=== PATIENT | male | born 1980 | race Caucasian/White ===

== ENCOUNTER 2022-02-04 12:00 | Inpatient (IN) | payer OTHER ==
[~2022-02-04] VITALS: Ht 172.7 cm; Wt 95.3 kg
[~2022-02-04 12:00] MED LIST: INTESTINEX680 M1 PO; KETO10TA2 PO; NEXIUM40 M1 PO; NORFLEX100MG PO
[2022-02-12] MEDS ORDERED: HYOSCYAMINE0.125 M1 SL (11:07)
[2022-02-12] MEDS ORDERED: INTESTINEX680 M1 PO (11:07)
[2022-02-12] MEDS ORDERED: ULTRACET PO (11:08)
== END 2022-02-12 14:20 | disposition home or self-care (01) | DRG 331 ==
LOC: SURH 02-09 06:13 → O/R 02-09 06:13 → SURH 02-09 10:31 → SURG 02-09 11:00 → SURH 02-12 14:20
PROVIDERS: ADMIT Surgery; ATTEND Surgery
PROC: 0DTP4ZZ Resection of Rectum, Percutaneous Endoscopic Approach (ICD-10-PCS; 2022-02-09)
PROC: 0DJD8ZZ Inspection of Lower Intestinal Tract, Via Natural or Artificial Opening Endoscopic (ICD-10-PCS; 2022-02-09)
PROC: 0DTNFZZ Resection of Sigmoid Colon, Via Natural or Artificial Opening With Percutaneous Endoscopic Assistance (ICD-10-PCS; principal; 2022-02-09 11:00)
DX: K57.32 Diverticulitis of large intestine without perforation or abscess without bleeding (principal); E66.9 Obesity, unspecified; Z20.822 Contact with and (suspected) exposure to COVID-19

== ENCOUNTER 2023-04-19 11:32 | Emergency (ER) | payer OTHER ==
[~2023-04-19] VITALS: Ht 172.7 cm; Wt 87.5 kg
[~2023-04-19 11:32] MED LIST changes: +HYOSCYAMINE0.125 M1 SL; +ULTRACET PO
[2023-04-19] MEDS ORDERED: ESOMEPRAZOLE MA40 MG PO (11:59)
[2023-04-19 12:28] LABS: HEMATOCRIT 41.5 % (39.0-48.0); HEMOGLOBIN 13.8 g/dL (13-16.00); MEAN CELL VOLUME 87.5 fL (80.0-100.00); MEAN CORPUSCULAR HEMOGLOBIN 29.2 pg (27.00-32.0); MEAN CORPUSCULAR HGB CONC 33.3 g/dl (32.0-36.0); PH,URINE 7.5 (5.0-8.0); PLATELET COUNT 305 K/uL (150-450); RED BLOOD COUNT 4.74 M/uL (4.00-6.00); RED CELL DISTRIBUTION WIDTH 14.3 % (11.5-14.5); URINE APPEARANCE Clear; URINE BILIRRUBIN Negative (NEGATIVE); URINE BLOOD Negative; URINE COLOR Yellow; URINE GLUCOSE Negative (NEGATIVE); URINE LEUKOCYTE Negative; URINE NITRATE Negative; URINE PROTEIN Negative (NEGATIVE); URINE UROBILINOGEN 0.2 E.U./dl
[2023-04-19 12:33] LABS: URINE BACTERIA 1.2 uL (0.0-1933); URINE EPITHELIAL CELLS 0.4 uL (0.0-38.8); URINE RBC 1.5 uL (0.0-20.8); URINE WBC 0.7 uL (0.0-23.2)
[2023-04-19 12:47] LABS: CALCIUM 9.1 mg/dL (8.5-10.1); CREATININE SERUM 0.96 mg/dL (0.70-1.30); GFR 85.09; POTASSIUM 4.38 mEq/L (3.5-5.1)
[2023-04-19] MEDS ORDERED: PEPCID AC20 MG PO (18:36)
== END 2023-04-19 20:23 | disposition home or self-care (01) ==
LOC: ER 11:32
PROVIDERS: Emergency Medicine
DX: K29.70 Gastritis, unspecified, without bleeding (principal)